=== PATIENT | male | born 1955 | race Caucasian/White ===

== ENCOUNTER 2016-04-03 12:49 | Emergency (ER) | payer BC, OTHER ==
[2016-04-03 13:04] VITALS: BP 139/83; PULSE 85
--- NOTE | 2016-04-03 13:16 | ERPHSYRPT ---
- History of Present Illness Time Seen by Provider: 04/03/16 13:12 Source: patient Exam Limitations: no limitations Patient Subjective Stated Complaint: pt states he thinks a part of his hearing aide is stuck in right ear. Triage Nursing Assessment: pt pink, warm, dry. foreign body noted to right ear. Physician History: The patient is a 61-year-old male with hearing aids complaining of a dislodged portion of his right hearing aid remaining in his right ear since last night. Timing/Duration: abrupt onset, yesterday Severity: mild ENT Location: ear (R) Prearrival Treatment: no prearrival treatment Modifying Factors: Improves With: nothing Associated Symptoms: change in hearing Allergies/Adverse Reactions: No Known Drug Allergies Allergy (Unverified 04/03/16 13:04) Home Medications: Omeprazole [Prilosec] 40 mg PO HS 03/11/15 [History] Hx Tetanus, Diphtheria Vaccination/Date Given: Yes (up to date) Hx Influenza Vaccination/Date Given: Yes Hx Pneumococcal Vaccination/Date Given: No Immunizations Up to Date: Yes - Review of Systems Constitutional: No Fever, No Chills Eyes: No Symptoms Ears, Nose, & Throat: Other (right ear FB) Respiratory: No Cough, No Dyspnea Cardiac: No Chest Pain, No Edema, No Syncope Abdominal/Gastrointestinal: No Abdominal Pain, No Nausea, No Vomiting, No Diarrhea Genitourinary Symptoms: No Dysuria Musculoskeletal: No Back Pain, No Neck Pain Skin: No Rash Neurological: No Dizziness, No Focal Weakness, No Sensory Changes Psychological: No Symptoms Endocrine: No Symptoms Hematologic/Lymphatic: No Symptoms Immunological/Allergic: No Symptoms All Other Systems: Reviewed and Negative - Past Medical History Pertinent Past Medical History: Yes GI Medical History: GERD - Past Surgical History Past Surgical History: Yes Gastrointestinal: Appendectomy Musculoskeletal: Orthopedic Surgery Other Surgical History: rt knee repair-25 yrs ago - Social History Smoking Status: Never smoker Exposure to second hand smoke: No Drug Use: none Patient Lives Alone: No - Nursing Vital Signs Nursing Vital Signs: Initial Vital Signs Temperature 97.4 F Temperature Source Oral Pulse Rate 85 Respiratory Rate 18 Blood Pressure [Right Arm] 139/83 Pain Intensity 0 - Physical Exam General Appearance: no apparent distress, alert Eye Exam: bilateral eye: PERRL, EOMI Ear Exam: right ear: foreign body (piece of hearing aid), bilateral ear: TM normal Nasal Exam: normal inspection Throat Exam: pharynx normal, moist mucus membranes, No tonsillar exudate Neck Exam: supple Cardiovascular/Respiratory Exam: normal breath sounds, regular rate/rhythm Abdominal Exam: non-tender, soft Neurologic Exam: alert, oriented x 3, sensation nml, No motor deficits Skin Exam: normal color, warm, dry SpO2 Interpretation: normal - Progress Progress: improved Progress Note: 04/03/16 13:15 Nurse removed piece of hearing aid from right ear canal without difficulty. Counseled pt/family regarding: diagnosis - Departure Time of Disposition: 13:15 Departure Disposition: Home Clinical Impression: Ear foreign body Condition: Stable Critical Care Time: No
== END 2016-04-03 13:21 | disposition home or self-care (01) ==
LOC: ED 12:49
DX: T16.1XXA Foreign body in right ear, initial encounter (principal)
CPT/HCPCS: 99282; 99284

== ENCOUNTER 2019-10-09 17:22 | Emergency (ER) | payer BC ==
[2019-10-09] MEDS ORDERED: MORPHINE SULFATE 4 MG INJ IV ONE (17:29)
[2019-10-09] MEDS ORDERED: Heparin 25,000 units/D5W 250ML PREMIX 25,000 UNITS/250 ML BAG IV ONE (17:30)
[2019-10-09] MEDS ORDERED: Heparin 5000 UNITS/0.5 ML (HIGH RISK MED) ONE (17:30)
[2019-10-09] MEDS ORDERED: Sodium Chloride 0.9% 1000 ML 1,000 ML ONE (17:30)
[2019-10-09] MEDS ORDERED: Zofran 4 MG/2 ML VIAL ONE (17:35)
[2019-10-09] MEDS ORDERED: MORPHINE SULFATE 4 MG INJ ONE (17:35)
[2019-10-09 17:45] LABS: Absolute Neutrophil Ct (ANC) 4.96 (1.4-6.9); BASOPHIL % 0.2 % (0.0-0.4); Basophil (Absolute #) 0.02 (0-0.4); Eosinophil % 2.5 % (0.00-5.0); Eosinophil (Absolute #) 0.22 (0-0.5); Hematocrit 44.5 % (42-50); Hemoglobin 15.2 gm/dl (12.5-18.0); Lymphocyte (Absolute #) 2.57 (1.0-4.6); Lymphocytes % 29.7 % (24.0-44.0); Mean Cell Volume 92.7 fl (78-100); Mean Corpuscular Hemoglobin 31.7 pg (26-32); Mean Corpuscular Hgb Concent. 34.2 g/dl (32-36); Mean Platelet Volume 9.1 fl (7.5-11.0); Monocyte (Absolute #) 0.89 (0.0-1.3); Monocytes % 10.3 % (0.0-12.0); Neutrophil % 57.3 % (36.0-66.0); Platelet Count 261 K/mm3 (150-450); White Blood Count 8.7 K/mm3 (4.0-10.5)
[2019-10-09 17:48] VITALS: O2SAT 98
--- NOTE | 2019-10-09 17:48 | ERPHSYRPT ---
- History of Present Illness Time Seen by Provider: 10/09/19 17:50 Historian: patient ([id number]) Physician History: Patient is a 64-year-old male presents to our ED with active chest pain. Patient's chest pain started yesterday. Patient went to [facility]. Patient was evaluated and subsequently discharged. Patient states his chest pain has been intermittent over the past day. Patient followed up with his primary care doctor today. He was given 4 aspirin and nitro sublingual. Oleg cervantes is here complaining of severe chest pain. Chest pain has been ongoing. Patient is mildly nauseous. Chest pain radiates into his left arm and into his neck. No trauma. No fever. EKG reveals inferior wall ST segment elevation. There are precordial lead reciprocal changes. Due to the emergent situation HPI is limited. Timing/Duration: yesterday Activities at Onset: none Quality: aching Location: substernal Severity of Pain-Max: severe Severity of Pain-Current: mild Modifying Factors: Improves With: nothing, nitroglycerin, aspirin Associated Symptoms: nausea, other (Tingling sensation in left arm.) Prior Chest Pain/Cardiac Workup: no prior chest pain Nitro Today/Relief: 0.4 mg x 1 Aspirin Treatment Today: 325 mg x 1 Allergies/Adverse Reactions: No Known Drug Allergies Allergy (Verified 10/09/19 18:44) Home Medications: Omeprazole [Prilosec] 40 mg PO HS 03/11/15 [History] Fluticasone/Vilanterol [Breo Ellipta 100-25 Mcg INH] 1 puff DAILY 10/09/19 [ History] Hx Tetanus, Diphtheria Vaccination/Date Given: Yes (up to date) Hx Influenza Vaccination/Date Given: Yes Hx Pneumococcal Vaccination/Date Given: No - Review of Systems All Other Systems: Unable due to condition - Past Medical History Pertinent Past Medical History: Yes GI Medical History: GERD - Past Surgical History Past Surgical History: Yes Gastrointestinal: Appendectomy Musculoskeletal: Orthopedic Surgery Other Surgical History: rt knee repair-25 yrs ago - Social History Smoking Status: Never smoker Exposure to second hand smoke: No Drug Use: none Patient Lives Alone: No - Nursing Vital Signs Nursing Vital Signs: Initial Vital Signs Pulse Rate 80 10/09/19 17:22 Respiratory Rate 24 10/09/19 17:22 Blood Pressure 149/89 10/09/19 17:22 O2 Sat by Pulse Oximetry 98 10/09/19 17:22 Pain Scale Pain Intensity 10 - Physical Exam General Appearance: alert, other (There are active chest pain.) Eye Exam: PERRL/EOMI, eyes nml inspection Ears, Nose, Throat Exam: normal ENT inspection, moist mucous membranes Neck Exam: normal inspection, non-tender, supple, full range of motion Respiratory Exam: normal breath sounds, lungs clear, No respiratory distress Cardiovascular Exam: regular rate/rhythm, normal heart sounds Gastrointestinal/Abdomen Exam: soft, No tenderness, No mass Back Exam: normal inspection, No CVA tenderness, No vertebral tenderness Extremity Exam: normal inspection, normal range of motion Neurologic Exam: alert, oriented x 3, cooperative, normal mood/affect, sensation nml, No motor deficits Skin Exam: normal color, warm, dry SpO2 Interpretation: normal SpO2: 98 O2 Delivery: Room Air - Course Nursing assessment & vital signs reviewed: Yes EKG Interpreted by Me: RATE (72), Sinus Rhythm, NORMAL AXIS, NORMAL INTERVALS, Other (Inferior wall ST segment elevation myocardial infarction with reciprocal changes in the precordial leads.) - Radiology Exams Chest X-ray Interpretation: Interpreted by me (No infiltrate no consolidation no effus ion. No pneumothorax. Normal bony thorax. Normal cardiac silhouette. No acute findings.) Ordered Tests: Active Orders 24 hr Category Date Time Status Supervisor Tumbling And Rolling STAT Care 10/09/19 17:30 Completed EKG-ER Only STAT Care 10/09/19 17:29 Completed IV Insertion STAT Care 10/09/19 17:29 Completed Pulse Oximetry (ED) STAT Care 10/09/19 17:29 Completed CHEST 1 VIEW (PORTABLE) Stat Exams 10/09/19 17:30 Taken CBC W DIFF Stat Lab 10/09/19 17:30 Completed CMP Stat Lab 10/09/19 17:30 Completed MAGNESIUM Stat Lab 10/09/19 17:30 Completed NT PRO BNP Stat Lab 10/09/19 17:30 Completed TROPONIN Q3H Lab 10/09/19 17:30 Completed Medication Summary Discontinued Medications Generic Name Dose Route Start Last Admin Trade Name Freq PRN Reason Stop Dose Admin Heparin Sodium (Beef Lung) Confirm 10/09/19 17:30 Heparin 5000 Units/0.5 Ml (High Risk Med) Administered 10/09/19 17:31 Dose 5,000 unit .ROUTE .STK-MED ONE Sodium Chloride Confirm 10/09/19 17:30 Sodium Chloride 0.9% 1000 Ml Administered 10/09/19 17:31 Dose 1,000 mls @ ud .ROUTE .STK-MED ONE Heparin Sodium/Dextrose Confirm 10/09/19 17:30 Heparin 25,000 Units/D5w 250ml Premix Administered 10/09/19 17:31 Dose 25,000 units in 250 mls @ ud IV .STK-MED ONE Morphine Sulfate 4 mg 10/09/19 17:29 10/09/19 18:47 Morphine Sulfate 4 Mg Inj IV 10/09/19 17:30 4 mg STAT ONE Administration Morphine Sulfate Confirm 10/09/19 17:35 Morphine Sulfate 4 Mg Inj Administered 10/09/19 17:36 Dose 4 mg .ROUTE .STK-MED ONE Ondansetron HCl Confirm 10/09/19 17:35 Zofran 4 Mg/2 Ml Vial Administered 10/09/19 17:36 Dose 4 mg .ROUTE .STK-MED ONE Lab/Rad Data: Laboratory Result Diagrams 10/09/19 17:30 10/09/19 17:30 Laboratory Results 10/09/19 10/09/19 10/09/19 Range/Units 17:30 17:30 17:30 WBC 8.7 (4.0-10.5) K/mm3 RBC 4.80 (4.1-5.6) M/mm3 Hgb 15.2 (12.5-18.0) gm/dl Hct 44.5 (42-50) % MCV 92.7 (78-100) fl MCH 31.7 (26-32) pg MCHC 34.2 (32-36) g/dl RDW 13.0 (11.5-14.0) % Plt Count 261 (150-450) K/mm3 MPV 9.1 (7.5-11.0) fl Gran % 57.3 (36.0-66.0) % Eos # (Auto) 0.22 (0-0.5) Absolute Lymphs (auto) 2.57 (1.0-4.6) Absolute Monos (auto) 0.89 (0.0-1.3) Lymphocytes % 29.7 (24.0-44.0) % Monocytes % 10.3 (0.0-12.0) % Eosinophils % 2.5 (0.00-5.0) % Basophils % 0.2 (0.0-0.4) % Absolute Granulocytes 4.96 (1.4-6.9) Basophils # 0.02 (0-0.4) Sodium 138 (137-145) mmol/L Potassium 3.3 L (3.5-5.1) mmol/L Chloride 105 (98-107) mmol/L Carbon Dioxide 21 L (22-30) mmol/L Anion Gap 15.2 H (5-15) MEQ/L BUN 13 (9-20) mg/dL Creatinine 1.11 (0.66-1.25) mg/dL Estimated GFR > 60.0 ML/MIN Glucose 140 H (74-106) mg/dL Calcium 9.5 (8.4-10.2) mg/dL Magnesium 1.9 (1.6-2.3) mg/dL Total Bilirubin 0.40 (0.2-1.3) mg/dL AST 27 (17-59) U/L ALT 25 (0-50) U/L Alkaline Phosphatase 68 (38-126) U/L Troponin I 0.066 H* (0.000-0.034) ng/mL NT-Pro-B Natriuret Pep 111 (0-900) pg/mL Serum Total Protein 7.8 (6.3-8.2) g/dL Albumin 4.7 (3.5-5.0) g/dL - Progress Progress: improved Air Movement: fair Progress Note: 10/09/19 17:52 EKG reveals a STEMI. EKG faxed over to [facility]. [facility] acknowledges STEMI and accepts transfer. Chest x-ray completed results pending. Lab work pending. Oxygen nasal cannula administered. Patient received aspirin and nitroglycerin sublingual prior to arrival. Heparin administered. In light of inferior wall STEMI no nitroglycerin administered in our ED. Patient received morphine for pain control. Zofran administered as well for nausea. Case discussed with Dr. Zelaya ER physician at [facility] who accepts transfer for STEMI. Plan of care discussed with patient. He agrees to transfer to [facility] for further evaluation and treatment of his ST segment elevation myocardial infarction. Care time not billed as patient was not in our ED long enough. Patient was before the 30-minute po. 10/09/19 18:01 10/10/19 00:08 Blood Culture(s) Obtained: No Antibiotics given: No Counseled pt/family regarding: diagnosis - Departure Departure Disposition: Transfer Clinical Impression: STEMI (ST elevation myocardial infarction), Elevated troponin I level Condition: Stable Critical Care Time: No Referrals: RAMYA PAYNE MD [Primary Care Provider] - Instructions: Chest Pain (DC)
[2019-10-09 17:54] LABS: ALBUMIN 4.7 g/dL (3.5-5.0); ALKALINE PHOSPHATASE 68 U/L (38-126); ANION GAP 15.2 MEQ/L (5-15); BLOOD UREA NITROGEN 13 mg/dL (9-20); CHLORIDE 105 mmol/L (98-107); Calcium 9.5 mg/dL (8.4-10.2); Carbon Dioxide 21 mmol/L (22-30); Creatinine 1 1.11 mg/dL (0.66-1.25); EST GLOMERULAR FILTRATION RATE > 60.0 ML/MIN; Glucose 140 mg/dL (74-106); MAGNESIUM 1.9 mg/dL (1.6-2.3); NT PRO BNP 111 pg/mL (0-900); Potassium 3.3 mmol/L (3.5-5.1); SGOT/AST 27 U/L (17-59); SGPT/ALT 25 U/L (0-50); SODIUM 138 mmol/L (137-145); Total Protein 7.8 g/dL (6.3-8.2)
[2019-10-09 18:52] VITALS: BP 138/89; PULSE 78
--- NOTE | 2019-10-10 08:41 | XRAY ---
Indication: Chest pain and left arm numbness. Comparison: February 08, 2013. Portable chest less inflated and clear. Heart is not enlarged for AP portable technique. Bony thorax intact again with mild degenerative changes. No new/acute findings.
== END 2019-10-09 19:01 | disposition short-term general hospital (02) ==
LOC: ED 17:22
DX: I21.3 ST elevation (STEMI) myocardial infarction of unspecified site (principal); R74.8 Abnormal levels of other serum enzymes
CPT/HCPCS: 36000; 36415; 71045; 80053; 83735; 83880; 84484; 85025; 93005; 93041; 94760; 96374; 96375; 99285; J1644; J2270; J2405